=== PATIENT | female | born 1995 | race African-American/Black ===

== ENCOUNTER 2018-03-18 16:44 | Emergency (ER) | payer MEDICAID ==
[2018-03-18] MEDS: AUGMENTIN 875 MG TAB PO (18:49)
== END 2018-03-18 18:51 | disposition home or self-care (01) ==
LOC: M ED 16:44
DX: J02.9 Acute pharyngitis, unspecified (principal)
CPT/HCPCS: 87880

== ENCOUNTER → 2018-03-21 | Outpatient (CLI) | payer MEDICAID | LOC: M RAD 09:42 | DX: N63.20 Unspecified lump in the left breast, unspecified quadrant (principal) | CPT/HCPCS: 76642 ==

== ENCOUNTER → 2018-05-06 | Outpatient (CLI) | payer BC, OTHER ==
[~2018-05-06] MED LIST: AUGM875T28 PO; LIDOCAINE 1% MDV 20ML VIAL As Ordered ONE
--- NOTE | 2018-05-06 14:13 | REP ---
DIGITAL DIAGNOSTIC UNILATERAL LEFT BREAST MAMMOGRAPHY WITH CAD: TWO VIEWS. HISTORY: Marker clip placement study. The patient is status post ultrasound-guided needle biopsy of an oval soft tissue lesion in the left breast corresponding to a palpable abnormality. FINDINGS: Needle biopsy marker clip is seen projecting in the upper outer quadrant. No evidence of hematoma. Breast parenchyma is heterogeneously dense in a pattern which inhibits the sensitivity of mammography. IMPRESSION: Marker clip seen in the upper outer quadrant of the left breast. This mammogram was interpreted with the aid of an FDA-approved computer-aided detection system. Electronically Signed by Curtis Root MD 05/06/2018 08:06 P
--- NOTE | 2018-05-06 19:58 | REP ---
ULTRASOUND GUIDED LEFT BREAST BIOPSY The procedure was performed under the direct supervision of Dr. Root The patient has a history of a bilobed solid nodule in measuring 2.1 cm in the 1 o'clock position of the left breast seen on a previous ultrasound dated 03/21/2018. The risks and benefits of the procedure were explained to the patient and informed consent was obtained. The left breast nodule was localized using ultrasound guidance. The skin was prepped and draped in a sterile fashion. 1% Xylocaine was used as a local anesthetic. Using ultrasound guidance a 13-gauge suction assisted Mammotome needle was inserted and seven core biopsy samples were obtained. A marker clip was placed at the biopsy site. The patient tolerated the procedure well and there were no immediate complications. After the appropriate amount of monitored convalescence the patient was discharged from the department. Reviewed by LUL Proctor 05/06/2018 04:59 P Electronically Signed by Curtis Root MD 05/06/2018 07:49 P
== END ==
LOC: M RADPRO 12:00
PROVIDERS: ATTEND Surgery
DX: D24.2 Benign neoplasm of left breast (principal)

== ENCOUNTER 2018-07-20 18:52 | Emergency (ER) | payer BC, OTHER ==
[~2018-07-20] VITALS: Ht 162.6 cm; Wt 65.9 kg
[~2018-07-20 18:52] MED LIST changes: -LIDOCAINE 1% MDV 20ML VIAL As Ordered ONE
--- NOTE | 2018-07-20 19:44 | REP ---
Clinical: Trauma. Technique: AP, lateral, bilateral oblique views of the right hand. Findings: Angulated fracture involving the distal aspect of the fifth metacarpal bone (boxer's fracture) is appreciated with overlying soft tissue swelling. Remainder examination appears relatively normal. Impression: Acute boxer's fracture. Electronically Signed by Luis Weeks MD 07/20/2018 07:35 P
[2018-07-20] MEDS ORDERED: IBUP-1022 PO (20:28)
[2018-07-20] MEDS ORDERED: NORCO 5/325MG TABLET (BULK FOR ED) PO ONE (20:30)
[2018-07-20] MEDS ORDERED: NORCO, ANEXSIA 5/325MG TABLET (HYDROcodone/ACETAMINOPHEN) PO ONE (20:30)
[2018-07-20 20:34] VITALS: BP 119/60
== END 2018-07-20 20:51 | disposition home or self-care (01) ==
LOC: M ED 18:52
DX: S62.346A Nondisplaced fracture of base of fifth metacarpal bone, right hand, initial encounter for closed fracture (principal); S00.81XA Abrasion of other part of head, initial encounter; H05.222 Edema of left orbit; Y04.0XXA Assault by unarmed brawl or fight, initial encounter; Y92.410 Unspecified street and highway as the place of occurrence of the external cause

== ENCOUNTER → 2019-07-31 | Outpatient (REF) | payer BC ==
[~2019-07-31] MED LIST changes: +IBUP-1022 PO
== END ==
LOC: M SFHCLERA 11:45
PROVIDERS: ATTEND Physician Assistant
DX: J02.9 Acute pharyngitis, unspecified (principal)